=== PATIENT | female | born 1955 | race African-American/Black ===

== ENCOUNTER → 2019-03-21 | Outpatient (CLI) | payer MEDICARE, OTHER ==
[~2019-03-21] MED LIST: APIX2.5T PO; ASCO500 PO; ATOR40TA28 PO; BISA-151 PO; BUME1TAB34 PO; CARV12 PO; FOLI0.8T2 PO; INSLAN SQ; INSU100V39 SQ; NIFE90TA45 PO; POLY238P2 PO; SEVE800T17 PO
== END | disposition home or self-care (01) ==
LOC: RADPV 10:50
PROVIDERS: ATTEND Internal Medicine Geriatric Medicine
DX: I82.519 Chronic embolism and thrombosis of unspecified femoral vein (principal)
CPT/HCPCS: 93970

== ENCOUNTER → 2019-07-18 | Outpatient (CLI) | payer MEDICARE, OTHER | END | disposition home or self-care (01) | LOC: RADPV 13:43 | PROVIDERS: ATTEND Internal Medicine Geriatric Medicine | DX: I82.4Y1 Acute embolism and thrombosis of unspecified deep veins of right proximal lower extremity (principal) | CPT/HCPCS: 93970 ==

== ENCOUNTER → 2019-12-28 | Outpatient (CLI) | payer MEDICARE, OTHER ==
[2019-12-28 10:12] LABS: BASOPHILS % (AUTO) 0.9 % (0.0-2.0); EOSINOPHILS % (AUTO) 2.9 % (1.0-6.0); HEMATOCRIT 34.7 % (36-46); HEMOGLOBIN 11.6 g/dL (12.0-16.0); LYMPHOCYTES # (AUTO) 1.7 K/uL (1.0-4.8); LYMPHOCYTES % (AUTO) 33.7 % (22.0-44.0); MEAN CORPUSCULAR HEMOGLOBIN 31.9 pg (26.0-34.0); MEAN CORPUSCULAR HGB CONC 33.5 G/dL (31.0-37.0); MEAN CORPUSCULAR VOLUME 95 fL (80-100); MONOCYTES # (AUTO) 0.5 K/uL (0.1-1.0); MONOCYTES % (AUTO) 10.2 % (2.0-9.0); NEUTROPHILS # (AUTO) 2.7 K/uL (1.8-7.7); NEUTROPHILS % (AUTO) 52.3 % (40.0-70.0); PLATELET COUNT (AUTO) 282 K/uL (150-450); RED BLOOD CELL COUNT(AUTO) 3.65 MIL/uL (4.00-5.20); RED CELL DISTRIBUTION WIDTH 13.4 % (11.5-14.5)
[2019-12-28 10:24] LABS: HEMOGLOBIN A1C 6.4 % (3.8-5.6)
[2019-12-28 10:41] LABS: BILIRUBIN,TOTAL 0.4 mg/dL (0.1-1.0); CALCIUM, TOTAL 9.1 mg/dL (8.8-10.5); CHOL/HDL RATIO 5.2 (3.9-5.7); CREATININE 12.47 mg/dL (0.60-1.30); FREE T4 (FREE THYROXINE) 0.89 ng/dL (0.76-1.46); POTASSIUM 3.9 mmol/L (3.5-5.1); THYROID STIMULATING HORMONE 4.69 uIU/mL (0.36-3.74)
[2019-12-28 10:42] LABS: VITAMIN D,TOTAL (25-0H) 35 ng/mL (30-100)
[2019-12-28 10:56] LABS: FOLATE SERUM > 24.0 ng/mL (5.4-); VITAMIN B12 LEVEL > 2000 pg/mL (211-911)
== END | disposition home or self-care (01) ==
LOC: LABPV 09:25
PROVIDERS: ATTEND Internal Medicine Geriatric Medicine
DX: I12.9 Hypertensive chronic kidney disease with stage 1 through stage 4 chronic kidney disease, or unspecified chronic kidney disease (principal); E11.22 Type 2 diabetes mellitus with diabetic chronic kidney disease; N18.9 Chronic kidney disease, unspecified; E11.65 Type 2 diabetes mellitus with hyperglycemia; E11.69 Type 2 diabetes mellitus with other specified complication; E11.40 Type 2 diabetes mellitus with diabetic neuropathy, unspecified; E78.5 Hyperlipidemia, unspecified; G64 Other disorders of peripheral nervous system; Z79.899 Other long term (current) drug therapy
CPT/HCPCS: 82306; 82607; 82746; 83036; 84439; 84443

== ENCOUNTER → 2020-07-17 | Outpatient (CLI) | payer MEDICARE, OTHER ==
[2020-07-17 10:10] LABS: BASOPHILS % (AUTO) 2.6 % (0.0-2.0); EOSINOPHILS % (AUTO) 11.6 % (1.0-6.0); HEMATOCRIT 32.6 % (36-46); HEMOGLOBIN 10.7 g/dL (12.0-16.0); LYMPHOCYTES # (AUTO) 1.3 K/uL (1.0-4.8); LYMPHOCYTES % (AUTO) 33.1 % (22.0-44.0); MEAN CORPUSCULAR HEMOGLOBIN 31.2 pg (26.0-34.0); MEAN CORPUSCULAR HGB CONC 32.8 G/dL (31.0-37.0); MEAN CORPUSCULAR VOLUME 95 fL (80-100); MONOCYTES # (AUTO) 0.3 K/uL (0.1-1.0); MONOCYTES % (AUTO) 8.3 % (2.0-9.0); NEUTROPHILS # (AUTO) 1.7 K/uL (1.8-7.7); NEUTROPHILS % (AUTO) 44.4 % (40.0-70.0); PLATELET COUNT (AUTO) 203 K/uL (150-450); RED BLOOD CELL COUNT(AUTO) 3.43 MIL/uL (4.00-5.20); RED CELL DISTRIBUTION WIDTH 15.3 % (11.5-14.5)
[2020-07-17 10:48] LABS: ALBUMIN 3.5 g/dL (3.4-5.0); BILIRUBIN,TOTAL 0.4 mg/dL (0.1-1.0); CALCIUM, TOTAL 8.7 mg/dL (8.8-10.5); CHOL/HDL RATIO 3.1 (3.9-5.7); CREATININE 4.84 mg/dL (0.60-1.30); POTASSIUM 4.8 mmol/L (3.5-5.1); TOTAL PROTEIN, SERUM 7.8 g/dL (6.4-8.2)
[2020-07-17 11:01] LABS: HEMOGLOBIN A1C 5.5 % (3.8-5.6)
[2020-07-17 13:43] LABS: THYROID STIMULATING HORMONE 2.36 uIU/mL (0.36-3.74)
[2020-07-18 13:12] LABS: VITAMIN D,TOTAL (25-0H) 63 ng/mL (30-100)
[2020-07-18 13:14] LABS: FOLATE SERUM > 24.0 ng/mL (5.4-)
[2020-07-18 13:52] LABS: VITAMIN B12 LEVEL 1316 pg/mL (211-911)
== END | disposition home or self-care (01) ==
LOC: LABPV 09:34
PROVIDERS: ATTEND Internal Medicine Geriatric Medicine
DX: E11.65 Type 2 diabetes mellitus with hyperglycemia (principal); E11.40 Type 2 diabetes mellitus with diabetic neuropathy, unspecified; E11.22 Type 2 diabetes mellitus with diabetic chronic kidney disease; I12.9 Hypertensive chronic kidney disease with stage 1 through stage 4 chronic kidney disease, or unspecified chronic kidney disease; E11.49 Type 2 diabetes mellitus with other diabetic neurological complication; G64 Other disorders of peripheral nervous system; E78.5 Hyperlipidemia, unspecified; E87.1 Hypo-osmolality and hyponatremia; Z79.899 Other long term (current) drug therapy
CPT/HCPCS: 82306; 82607; 82746; 83036; 84439; 84443

== ENCOUNTER → 2021-01-21 | Outpatient (CLI) | payer MEDICARE, OTHER ==
[~2021-01-21] MED LIST changes: -BISA-151 PO; -CARV12 PO; +CARV6 PO; +NIFE-39 PO; -NIFE90TA45 PO; +PANT-31 PO; -POLY238P2 PO; +PREG75 PO
== END | disposition home or self-care (01) ==
LOC: RADPV 11:01
PROVIDERS: ATTEND Podiatrist Foot & Ankle Surgery
DX: M77.32 Calcaneal spur, left foot (principal); M85.872 Other specified disorders of bone density and structure, left ankle and foot; M79.89 Other specified soft tissue disorders; I70.292 Other atherosclerosis of native arteries of extremities, left leg; E11.29 Type 2 diabetes mellitus with other diabetic kidney complication

== ENCOUNTER 2021-01-28 07:49 | Inpatient (IN) | payer MEDICARE, OTHER ==
[~2021-01-28] VITALS: Ht 162.6 cm; Wt 52.0 kg
[2021-01-28 08:05] LABS: GLUCOMETER DEV NAME(LOC) ERT.5; GLUCOSE,POINT OF CARE 94 MG/DL (70-110)
[2021-01-28] MEDS ORDERED: CefTRIAXone 1 GM/DEXTROSE 50 ML IV ONE (10:00)
[2021-01-28] MEDS ORDERED: VANCOMYCIN HCL 1.5 GM in DEXTROSE 5%-WATER 250 ML IV ONE (10:00)
[2021-01-28 10:34] LABS: BASOPHILS % (AUTO) 1.9 % (0.0-2.0); EOSINOPHILS % (AUTO) 4.9 % (1.0-6.0); HEMOGLOBIN 11.3 g/dL (12.0-16.0); LYMPHOCYTES # (AUTO) 1.2 K/uL (1.0-4.8); LYMPHOCYTES % (AUTO) 28.5 % (22.0-44.0); MEAN CORPUSCULAR HEMOGLOBIN 30.2 pg (26.0-34.0); MEAN CORPUSCULAR HGB CONC 32.1 G/dL (31.0-37.0); MEAN CORPUSCULAR VOLUME 94 fL (80-100); MONOCYTES # (AUTO) 0.3 K/uL (0.1-1.0); MONOCYTES % (AUTO) 7.8 % (2.0-9.0); NEUTROPHILS # (AUTO) 2.3 K/uL (1.8-7.7); NEUTROPHILS % (AUTO) 56.9 % (40.0-70.0); PLATELET COUNT (AUTO) 242 K/uL (150-450); RED BLOOD CELL COUNT(AUTO) 3.73 MIL/uL (4.00-5.20); RED CELL DISTRIBUTION WIDTH 16.5 % (11.5-14.5)
[2021-01-28 10:36] LABS: ALBUMIN 3.6 g/dL (3.4-5.0); BILIRUBIN,TOTAL 0.3 mg/dL (0.1-1.0); CALCIUM, TOTAL 9.1 mg/dL (8.8-10.5); CREATININE 5.96 mg/dL (0.60-1.30); LACTIC ACID 0.5 mmol/L (0.4-2.0); POTASSIUM 5.4 mmol/L (3.5-5.1); TOTAL PROTEIN, SERUM 7.6 g/dL (6.4-8.2)
[2021-01-28 11:11] LABS: GLUCOSE,POINT OF CARE 112 MG/DL (70-110)
[2021-01-28] MEDS ORDERED: HYDR20I IVP (12:23)
[2021-01-28] MEDS: HydrALAZINE HCL 20 MG/ML VIAL IVP PRN ×2 (12:43→20:06)
[2021-01-28 13:10] VITALS: BP 181/80
[2021-01-28] MEDS ORDERED: CLOP75TA60 PO (13:47)
[2021-01-28] MEDS ORDERED: ASPI-1450 PO (13:47)
[2021-01-28] MEDS ORDERED: HYDR50TA36 PO (13:47)
[2021-01-28] MEDS ORDERED: VITA1CAP17 PO (13:47)
[2021-01-28] MEDS ORDERED: CARVEDILOL 3.125 MG TABLET PO SCH (14:00)
[2021-01-28] MEDS ORDERED: CARVEDILOL 6.25 MG TABLET PO SCH (14:00)
[2021-01-28] MEDS: NIFEdipine 60 MG ER TABLET PO SCH (15:20)
[2021-01-28] MEDS ORDERED: SODIUM POLYSTYRENE SULFONATE 15 GM/60 ML SUSPENSION BOTTLE PO ONE (15:30)
[2021-01-28] MEDS ORDERED: BISACODYL 10 MG RECTAL RECTAL SUPPOSITORY PR PRN ×2 (15:30→16:45)
[2021-01-28] MEDS: HydrALAZINE HCL 50 MG TABLET PO SCH ×2 (16:34→21:00)
[2021-01-28 16:41] VITALS: BP 170/59
[2021-01-28] MEDS ORDERED: MORPHINE SULFATE 2 MG/ML SYRINGE IVP PRN (16:45)
[2021-01-28] MEDS ORDERED: MAGNESIUM HYDROXIDE SUSPENSION 30 ML UDCUP PO PRN (16:45)
[2021-01-28] MEDS ORDERED: ZOLPIDEM TARTRATE 5 MG TABLET PO PRN (16:45)
[2021-01-28] MEDS ORDERED: ONDANSETRON HCL 4 MG/2 ML VIAL IVP PRN (16:45)
[2021-01-28] MEDS ORDERED: HYDROCODONE/ACETAMINOPHEN 5-325 MG TABLET PO PRN (16:45)
[2021-01-28] MEDS ORDERED: VANCOMYCIN HCL 1 GM/D5% WATER 200 ML IV PRN (17:00)
[2021-01-28] MEDS ORDERED: DEXTROSE 50%-WATER 25 GM/50 ML SYRINGE IVP PRN (17:15)
[2021-01-28 17:23] LABS: THYROID STIMULATING HORMONE 3.59 uIU/mL (0.36-3.74)
[2021-01-28] MEDS: SEVELAMER CARBONATE 800 MG TABLET PO SCH (18:44)
[2021-01-28] MEDS: ASPIRIN 81 MG CHEWABLE TABLET PO SCH (21:00)
[2021-01-28] MEDS: DOCUSATE SODIUM 100 MG CAPSULE PO SCH (21:00)
[2021-01-28] MEDS: CARVEDILOL 12.5 MG TABLET PO SCH (21:00)
[2021-01-28 23:11] VITALS: BP 146/64
[2021-01-28] MEDS: HEPARIN SODIUM,PORCINE 5,000 UNITS/ML VIAL SQ SCH (23:32)
[2021-01-29 00:22] VITALS: BP 155/54
[2021-01-29 01:31] LABS: GLUCOMETER DEV NAME(LOC) 5N.3; GLUCOSE,POINT OF CARE 119 MG/DL (70-110)
[2021-01-29 01:31] LABS: GLUCOMETER DEV NAME(LOC) 5S.2B; GLUCOSE,POINT OF CARE 124 MG/DL (70-110)
[2021-01-29 01:31] LABS: GLUCOMETER DEV NAME(LOC) 5S.2B; GLUCOSE,POINT OF CARE 149 MG/DL (70-110)
[2021-01-29 05:30] VITALS: BP 161/78
[2021-01-29] MEDS ORDERED: SODIUM CHLORIDE 0.9% 1,000 ML IV ONE (06:00)
[2021-01-29] MEDS ORDERED: SODIUM CHLORIDE 0.9% 10 ML ONE (06:28)
[2021-01-29] MEDS ORDERED: SODIUM CL IRRIG SOLN BAG 0 ML IRRIG ONE (06:28)
[2021-01-29] MEDS ORDERED: BUPIVACAINE HCL/PF 0.25% 30 ML VIAL ONE (06:28)
[2021-01-29] MEDS ORDERED: LIDOCAINE/PF 1% 30 ML VIAL ONE (06:28)
[2021-01-29] MEDS ORDERED: BACITRACIN 50,000 UNITS/VIAL ONE (06:28)
[2021-01-29] MEDS ORDERED: SODIUM CHLORIDE 0.9% 0 ML ONE (06:28)
[2021-01-29] MEDS ORDERED: VANCOMYCIN HCL 1 GM/VIAL ONE (06:29)
[2021-01-29 06:48] LABS: GLUCOMETER DEV NAME(LOC) SDS.; GLUCOSE,POINT OF CARE 94 MG/DL (70-110)
[2021-01-29] MEDS ORDERED: GELATIN SPONGE,ABSORBABLE 50 MM TP ONE (07:07)
[2021-01-29] MEDS ORDERED: THROMBIN, BOVINE 20000 UNITS/VIAL POWDER TP ONE (07:08)
[2021-01-29] MEDS ORDERED: HYDROmorphone 2 MG/ML VIAL IVP PRN (07:30)
[2021-01-29] MEDS ORDERED: FentaNYL CITRATE PF 100 MCG/2 ML VIAL IVP PRN (07:30)
[2021-01-29] MEDS ORDERED: MEPERIDINE-PF 25 MG/ML VIAL IVP PRN (07:30)
[2021-01-29] MEDS ORDERED: OXYGEN THERAPY IH SCH (08:00)
[2021-01-29] MEDS: SEVELAMER CARBONATE 800 MG TABLET PO SCH ×3 (08:00→17:46)
[2021-01-29] MEDS: HEPARIN SODIUM,PORCINE 5,000 UNITS/ML VIAL SQ SCH ×3 (08:00→23:38)
[2021-01-29] MEDS: HydrALAZINE HCL 50 MG TABLET PO SCH ×3 (09:00→21:07)
[2021-01-29] MEDS: DOCUSATE SODIUM 100 MG CAPSULE PO SCH ×2 (09:00→21:08)
[2021-01-29] MEDS: CLOPIDOGREL BISULFATE 75 MG TABLET PO SCH (09:18)
[2021-01-29] MEDS: PANTOPRAZOLE SODIUM 40 MG DR TABLET PO SCH (09:18)
[2021-01-29] MEDS: NIFEdipine 60 MG ER TABLET PO SCH (09:18)
[2021-01-29] MEDS: VITAMIN B COMP/VIT C/FOLIC ACID CAPSULE PO SCH (09:18)
[2021-01-29] MEDS: CARVEDILOL 12.5 MG TABLET PO SCH ×2 (09:19→21:07)
[2021-01-29 09:40] VITALS: BP 165/60
[2021-01-29 10:49] LABS: INR 1.2 (0.9-1.1); PROTHROMBIN TIME 12.4 SEC (9.4-11.6)
[2021-01-29 11:11] LABS: ALANINE AMINOTRANSFERASE 21 U/L (12-78); ALBUMIN 3.7 g/dL (3.4-5.0); ALKALINE PHOSPHATASE 78 U/L (46-116); ANION GAP 12 mmol/L (8-16); ASPARTATE AMINOTRANSFERASE 20 U/L (15-37); BILIRUBIN,TOTAL 0.3 mg/dL (0.1-1.0); CALCIUM, TOTAL 9.5 mg/dL (8.8-10.5); CARBON DIOXIDE 25 mmol/L (22-29); CHLORIDE 96 mmol/L (98-107); CHOL/HDL RATIO 2.3 (3.9-5.7); CHOLESTEROL 195 mg/dL (131-200); CREATININE 4.32 mg/dL (0.60-1.30); FREE T4 (FREE THYROXINE) 1.01 ng/dL (0.76-1.46); GLOMERULAR FILTR. RATE CALC 12 mL/min (>60); GLUCOSE,RANDOM 133 mg/dL (70-110); HDL CHOLESTEROL 84 mg/dL (40-60); LDL CHOL (CALC.) 86 mg/dL (0-130); POTASSIUM 4.9 mmol/L (3.5-5.1); SODIUM SERUM 133 mmol/L (136-145); THYROID STIMULATING HORMONE 3.34 uIU/mL (0.36-3.74); TRIGLYCERIDES 124 mg/dL (15-150); UREA NITROGEN, BLOOD 38 mg/dL (7-18)
[2021-01-29 11:26] LABS: C-REACTIVE PROTEIN QUANT < 0.05 mg/dL (0.00-0.30)
[2021-01-29 11:28] LABS: BASOPHILS % (AUTO) 1.4 % (0.0-2.0); HEMOGLOBIN 12.3 g/dL (12.0-16.0); LYMPHOCYTES # (AUTO) 0.5 K/uL (1.0-4.8); LYMPHOCYTES % (AUTO) 16.3 % (22.0-44.0); MEAN CORPUSCULAR HEMOGLOBIN 30.6 pg (26.0-34.0); MEAN CORPUSCULAR HGB CONC 32.4 G/dL (31.0-37.0); MEAN CORPUSCULAR VOLUME 94 fL (80-100); MONOCYTES # (AUTO) 0.1 K/uL (0.1-1.0); MONOCYTES % (AUTO) 1.9 % (2.0-9.0); NEUTROPHILS # (AUTO) 2.3 K/uL (1.8-7.7); NEUTROPHILS % (AUTO) 79.4 % (40.0-70.0); PLATELET COUNT (AUTO) 257 K/uL (150-450); RED BLOOD CELL COUNT(AUTO) 4.03 MIL/uL (4.00-5.20); RED CELL DISTRIBUTION WIDTH 16.5 % (11.5-14.5)
[2021-01-29 11:35] LABS: URIC ACID 2.8 mg/dL (2.6-7.2)
[2021-01-29 11:38] VITALS: BP 158/62
[2021-01-29 11:42] LABS: GLUCOMETER DEV NAME(LOC) 5S.2B; GLUCOSE,POINT OF CARE 102 MG/DL (70-110)
[2021-01-29] MEDS: ATORVASTATIN CALCIUM 40 MG TABLET PO SCH (11:56)
[2021-01-29] MEDS: INSULIN LISPRO 100 UNITS/ML SQ PRN (11:59)
[2021-01-29 13:50] LABS: ERYTHROCYTE SEDIMENTATION RATE 26 MM/HR (0-20)
[2021-01-29 16:40] VITALS: BP 164/68
[2021-01-29 20:42] VITALS: BP 162/54
[2021-01-29] MEDS: ASPIRIN 81 MG CHEWABLE TABLET PO SCH (21:07)
[2021-01-29] MEDS: ACETAMINOPHEN 325 MG TABLET PO PRN (22:01)
[2021-01-29 23:04] LABS: GLUCOMETER DEV NAME(LOC) 5N.3; GLUCOSE,POINT OF CARE 134 MG/DL (70-110)
[2021-01-29 23:04] LABS: GLUCOMETER DEV NAME(LOC) 5N.3; GLUCOSE,POINT OF CARE 118 MG/DL (70-110)
[2021-01-30 00:17] VITALS: BP 178/58
[2021-01-30 04:58] VITALS: BP 187/58
[2021-01-30] MEDS: HydrALAZINE HCL 20 MG/ML VIAL IVP PRN ×3 (05:01→20:14)
[2021-01-30] MEDS ORDERED: PROPOFOL 1% 20 ML VIAL IVP ONE (05:40)
[2021-01-30] MEDS ORDERED: ONDANSETRON HCL 4 MG/2 ML VIAL IVP ONE (05:40)
[2021-01-30] MEDS ORDERED: FentaNYL CITRATE PF 100 MCG/2 ML VIAL IVP ONE (05:40)
[2021-01-30] MEDS ORDERED: DEXAMETHASONE SOD PHOS 4 MG/ML VIAL IVP ONE (05:40)
[2021-01-30 07:26] VITALS: BP 186/59
[2021-01-30] MEDS: CARVEDILOL 12.5 MG TABLET PO SCH ×2 (07:46→20:14)
[2021-01-30] MEDS: HydrALAZINE HCL 50 MG TABLET PO SCH ×3 (07:46→23:47)
[2021-01-30] MEDS: SEVELAMER CARBONATE 800 MG TABLET PO SCH ×3 (08:04→18:00)
[2021-01-30] MEDS: DOCUSATE SODIUM 100 MG CAPSULE PO SCH ×2 (08:16→20:13)
[2021-01-30] MEDS: CLOPIDOGREL BISULFATE 75 MG TABLET PO SCH (08:16)
[2021-01-30] MEDS: ATORVASTATIN CALCIUM 40 MG TABLET PO SCH (08:16)
[2021-01-30] MEDS: VITAMIN B COMP/VIT C/FOLIC ACID CAPSULE PO SCH (08:16)
[2021-01-30] MEDS: PANTOPRAZOLE SODIUM 40 MG DR TABLET PO SCH (08:16)
[2021-01-30] MEDS: EPOETIN ALFA 10,000 UNITS/ML 2 ML VIAL SQ SCH (08:18)
[2021-01-30] MEDS: HEPARIN SODIUM,PORCINE 5,000 UNITS/ML VIAL SQ SCH (08:19)
[2021-01-30] MEDS: NIFEdipine 60 MG ER TABLET PO SCH (09:38)
[2021-01-30] MEDS ORDERED: CloNIDine HCL 0.1 MG TABLET PO PRN (10:30)
[2021-01-30 11:51] LABS: GLUCOMETER DEV NAME(LOC) 5N.1C; GLUCOSE,POINT OF CARE 247 MG/DL (70-110)
[2021-01-30 11:51] LABS: GLUCOMETER DEV NAME(LOC) 5N.1C; GLUCOSE,POINT OF CARE 149 MG/DL (70-110)
[2021-01-30 11:51] LABS: GLUCOMETER DEV NAME(LOC) 5N.1C; GLUCOSE,POINT OF CARE 139 MG/DL (70-110)
[2021-01-30 12:00] VITALS: BP 174/61
[2021-01-30] MEDS ORDERED: VANCOMYCIN HCL 1 GM/D5% WATER 200 ML IV ONE (12:00)
[2021-01-30] MEDS: ACETAMINOPHEN 325 MG TABLET PO PRN (12:02)
[2021-01-30] MEDS ORDERED: SODIUM CHLORIDE 0.9% 500 ML IV ONE (13:52)
[2021-01-30] MEDS ORDERED: CARV3 PO (13:56)
[2021-01-30] MEDS: SIMETHICONE 80 MG CHEWABLE TABLET CHEW PRN (14:20)
[2021-01-30 15:38] VITALS: BP 163/50
[2021-01-30 17:49] LABS: GLUCOMETER DEV NAME(LOC) 5N.1C; GLUCOSE,POINT OF CARE 149 MG/DL (70-110)
[2021-01-30] MEDS: INSULIN LISPRO 100 UNITS/ML SQ PRN (19:45)
[2021-01-30] MEDS: ASPIRIN 81 MG CHEWABLE TABLET PO SCH (20:13)
[2021-01-30 20:32] VITALS: BP 169/58
[2021-01-31] VITALS (7 sets, daily range): BP systolic 161–180; BP diastolic 52–74
[2021-01-31 02:16] LABS: GLUCOMETER DEV NAME(LOC) 5S.1; GLUCOSE,POINT OF CARE 121 MG/DL (70-110)
[2021-01-31] MEDS: INSULIN LISPRO 100 UNITS/ML SQ PRN ×2 (05:33→12:30)
[2021-01-31] MEDS: HydrALAZINE HCL 20 MG/ML VIAL IVP PRN (06:09)
[2021-01-31 07:16] LABS: GLUCOMETER DEV NAME(LOC) 5S.1; GLUCOSE,POINT OF CARE 127 MG/DL (70-110)
[2021-01-31 07:44] LABS: BASOPHILS % (AUTO) 0.9 % (0.0-2.0); EOSINOPHILS % (AUTO) 3.7 % (1.0-6.0); HEMATOCRIT 33.1 % (36-46); HEMOGLOBIN 10.8 g/dL (12.0-16.0); LYMPHOCYTES # (AUTO) 0.9 K/uL (1.0-4.8); LYMPHOCYTES % (AUTO) 21.7 % (22.0-44.0); MEAN CORPUSCULAR HEMOGLOBIN 30.8 pg (26.0-34.0); MEAN CORPUSCULAR HGB CONC 32.6 G/dL (31.0-37.0); MEAN CORPUSCULAR VOLUME 95 fL (80-100); MONOCYTES # (AUTO) 0.5 K/uL (0.1-1.0); MONOCYTES % (AUTO) 12.8 % (2.0-9.0); NEUTROPHILS # (AUTO) 2.6 K/uL (1.8-7.7); NEUTROPHILS % (AUTO) 60.9 % (40.0-70.0); PLATELET COUNT (AUTO) 225 K/uL (150-450); RED BLOOD CELL COUNT(AUTO) 3.51 MIL/uL (4.00-5.20); RED CELL DISTRIBUTION WIDTH 16.6 % (11.5-14.5)
[2021-01-31 07:55] LABS: CALCIUM, TOTAL 8.9 mg/dL (8.8-10.5); CREATININE 4.3 mg/dL (0.60-1.30); POTASSIUM 4.3 mmol/L (3.5-5.1)
[2021-01-31 08:13] LABS: MAGNESIUM 2.2 mg/dL (1.80-2.40); PHOSPHORUS 4.3 mg/dL (2.5-4.9)
[2021-01-31] MEDS: PANTOPRAZOLE SODIUM 40 MG DR TABLET PO SCH (08:39)
[2021-01-31] MEDS: HydrALAZINE HCL 50 MG TABLET PO SCH ×3 (08:39→21:26)
[2021-01-31] MEDS: CLOPIDOGREL BISULFATE 75 MG TABLET PO SCH (08:39)
[2021-01-31] MEDS: VITAMIN B COMP/VIT C/FOLIC ACID CAPSULE PO SCH (08:39)
[2021-01-31] MEDS: DOCUSATE SODIUM 100 MG CAPSULE PO SCH ×2 (08:39→20:35)
[2021-01-31] MEDS: ATORVASTATIN CALCIUM 40 MG TABLET PO SCH (08:39)
[2021-01-31] MEDS: NIFEdipine 60 MG ER TABLET PO SCH ×2 (08:39→20:36)
[2021-01-31] MEDS: SEVELAMER CARBONATE 800 MG TABLET PO SCH ×3 (08:39→18:11)
[2021-01-31] MEDS: CARVEDILOL 12.5 MG TABLET PO SCH ×2 (08:49→20:35)
[2021-01-31] MEDS ORDERED: CeFAZolin 2 GM/DEXTROSE 50 ML IV ONE (14:00)
[2021-01-31] MEDS: ASPIRIN 81 MG CHEWABLE TABLET PO SCH (20:35)
[2021-02-01] VITALS (7 sets, daily range): BP systolic 65–171; BP diastolic 56–76
[2021-02-01 02:02] LABS: GLUCOMETER DEV NAME(LOC) 5S.1; GLUCOSE,POINT OF CARE 228 MG/DL (70-110)
[2021-02-01 02:02] LABS: GLUCOMETER DEV NAME(LOC) 5S.1; GLUCOSE,POINT OF CARE 92 MG/DL (70-110)
[2021-02-01 02:03] LABS: GLUCOMETER DEV NAME(LOC) 5N.1C; GLUCOSE,POINT OF CARE 125 MG/DL (70-110)
[2021-02-01 07:13] LABS: GLUCOMETER DEV NAME(LOC) 5S.1; GLUCOSE,POINT OF CARE 129 MG/DL (70-110)
[2021-02-01 08:11] LABS: CALCIUM, TOTAL 9.3 mg/dL (8.8-10.5); CREATININE 6.19 mg/dL (0.60-1.30); POTASSIUM 4.9 mmol/L (3.5-5.1)
[2021-02-01] MEDS: SEVELAMER CARBONATE 800 MG TABLET PO SCH ×2 (08:26→12:04)
[2021-02-01] MEDS: CLOPIDOGREL BISULFATE 75 MG TABLET PO SCH (08:27)
[2021-02-01] MEDS: HydrALAZINE HCL 50 MG TABLET PO SCH ×3 (08:27→19:57)
[2021-02-01] MEDS: PANTOPRAZOLE SODIUM 40 MG DR TABLET PO SCH (08:27)
[2021-02-01] MEDS: ATORVASTATIN CALCIUM 40 MG TABLET PO SCH (08:27)
[2021-02-01] MEDS: NIFEdipine 60 MG ER TABLET PO SCH ×2 (08:27→19:57)
[2021-02-01] MEDS: DOCUSATE SODIUM 100 MG CAPSULE PO SCH ×2 (08:27→19:57)
[2021-02-01] MEDS: CARVEDILOL 12.5 MG TABLET PO SCH ×2 (08:27→19:57)
[2021-02-01] MEDS: VITAMIN B COMP/VIT C/FOLIC ACID CAPSULE PO SCH (08:27)
[2021-02-01] MEDS: INSULIN LISPRO 100 UNITS/ML SQ PRN ×2 (12:06→17:50)
[2021-02-01 12:48] LABS: BASOPHILS % (AUTO) 0.8 % (0.0-2.0); EOSINOPHILS % (AUTO) 4.3 % (1.0-6.0); HEMOGLOBIN 11.2 g/dL (12.0-16.0); LYMPHOCYTES # (AUTO) 1.1 K/uL (1.0-4.8); LYMPHOCYTES % (AUTO) 19.3 % (22.0-44.0); MEAN CORPUSCULAR HEMOGLOBIN 30.5 pg (26.0-34.0); MEAN CORPUSCULAR VOLUME 95 fL (80-100); MONOCYTES # (AUTO) 0.5 K/uL (0.1-1.0); MONOCYTES % (AUTO) 9.6 % (2.0-9.0); NEUTROPHILS # (AUTO) 3.8 K/uL (1.8-7.7); PLATELET COUNT (AUTO) 246 K/uL (150-450); RED BLOOD CELL COUNT(AUTO) 3.68 MIL/uL (4.00-5.20); RED CELL DISTRIBUTION WIDTH 17.2 % (11.5-14.5)
[2021-02-01] MEDS: HydrALAZINE HCL 20 MG/ML VIAL IVP PRN (13:25)
[2021-02-01] MEDS: SEVELAMER CARBONATE 800 MG POWDER PACKET PO SCH ×2 (17:34→19:58)
[2021-02-01] MEDS: SIMETHICONE 80 MG CHEWABLE TABLET CHEW PRN (19:05)
[2021-02-01] MEDS: ASPIRIN 81 MG CHEWABLE TABLET PO SCH (19:57)
[2021-02-02 00:37] LABS: GLUCOMETER DEV NAME(LOC) 5S.1; GLUCOSE,POINT OF CARE 191 MG/DL (70-110)
[2021-02-02 00:37] LABS: GLUCOMETER DEV NAME(LOC) 5N.1C; GLUCOSE,POINT OF CARE 168 MG/DL (70-110)
[2021-02-02 00:38] LABS: GLUCOMETER DEV NAME(LOC) 5S.1; GLUCOSE,POINT OF CARE 155 MG/DL (70-110)
[2021-02-02 04:28] VITALS: BP 182/71
[2021-02-02 06:30] LABS: EOSINOPHILS % (AUTO) 6.7 % (1.0-6.0); HEMATOCRIT 31.6 % (36-46); HEMOGLOBIN 10.4 g/dL (12.0-16.0); LYMPHOCYTES % (AUTO) 19.6 % (22.0-44.0); MEAN CORPUSCULAR HEMOGLOBIN 30.8 pg (26.0-34.0); MEAN CORPUSCULAR VOLUME 93 fL (80-100); MONOCYTES # (AUTO) 0.5 K/uL (0.1-1.0); NEUTROPHILS % (AUTO) 61.7 % (40.0-70.0); PLATELET COUNT (AUTO) 235 K/uL (150-450); RED BLOOD CELL COUNT(AUTO) 3.39 MIL/uL (4.00-5.20); RED CELL DISTRIBUTION WIDTH 16.9 % (11.5-14.5)
[2021-02-02 06:31] LABS: GLUCOMETER DEV NAME(LOC) 5S.1; GLUCOSE,POINT OF CARE 150 MG/DL (70-110)
[2021-02-02 08:09] VITALS: BP 163/61
[2021-02-02] MEDS: EPOETIN ALFA 10,000 UNITS/ML 2 ML VIAL SQ SCH (08:13)
[2021-02-02] MEDS: SEVELAMER CARBONATE 800 MG POWDER PACKET PO SCH ×2 (08:14→17:33)
[2021-02-02] MEDS: ATORVASTATIN CALCIUM 40 MG TABLET PO SCH (08:14)
[2021-02-02] MEDS: VITAMIN B COMP/VIT C/FOLIC ACID CAPSULE PO SCH (08:14)
[2021-02-02] MEDS: CLOPIDOGREL BISULFATE 75 MG TABLET PO SCH (08:14)
[2021-02-02] MEDS: DOCUSATE SODIUM 100 MG CAPSULE PO SCH (08:14)
[2021-02-02] MEDS: PANTOPRAZOLE SODIUM 40 MG DR TABLET PO SCH (08:14)
[2021-02-02] MEDS ORDERED: SODIUM CHLORIDE 0.9% 1,000 ML ONE (09:30)
[2021-02-02] MEDS ORDERED: VANCOMYCIN HCL 500 MG in DEXTROSE 5%-WATER 100 ML IV ONE (10:30)
[2021-02-02 11:32] VITALS: BP 180/69
[2021-02-02] MEDS: NIFEdipine 60 MG ER TABLET PO SCH (11:58)
[2021-02-02] MEDS: ACETAMINOPHEN 325 MG TABLET PO PRN (12:06)
[2021-02-02] MEDS: CARVEDILOL 12.5 MG TABLET PO SCH (13:13)
[2021-02-02] MEDS: HydrALAZINE HCL 50 MG TABLET PO SCH ×2 (13:13→16:16)
[2021-02-02 13:20] LABS: GLUCOMETER DEV NAME(LOC) 5N.1C; GLUCOSE,POINT OF CARE 154 MG/DL (70-110)
[2021-02-02] MEDS ORDERED: CARV12 PO (14:32)
[2021-02-02] MEDS ORDERED: CeFAZolin 2 GM/DEXTROSE 50 ML IV SCH (16:00)
[2021-02-02 16:02] VITALS: BP 162/69
[2021-02-02] MEDS: INSULIN LISPRO 100 UNITS/ML SQ PRN (17:33)
[2021-02-04 12:08] LABS: GLUCOMETER DEV NAME(LOC) 5S.1; GLUCOSE,POINT OF CARE 160 MG/DL (70-110)
== END 2021-02-02 19:30 | disposition home or self-care (01) | DRG 629 ==
LOC: EMS 07:59 → 5S 12:00
PROVIDERS: ADMIT Internal Medicine; ATTEND Internal Medicine Geriatric Medicine
PROC: 0QBP0ZZ Excision of Left Metatarsal, Open Approach (ICD-10-PCS; principal; 2021-01-29 07:00)
DX: E11.69 Type 2 diabetes mellitus with other specified complication (principal); E11.52 Type 2 diabetes mellitus with diabetic peripheral angiopathy with gangrene; I12.0 Hypertensive chronic kidney disease with stage 5 chronic kidney disease or end stage renal disease; E87.1 Hypo-osmolality and hyponatremia; M86.8X7 Other osteomyelitis, ankle and foot; N18.6 End stage renal disease; E11.621 Type 2 diabetes mellitus with foot ulcer; E11.42 Type 2 diabetes mellitus with diabetic polyneuropathy; E11.22 Type 2 diabetes mellitus with diabetic chronic kidney disease; E78.5 Hyperlipidemia, unspecified; L97.529 Non-pressure chronic ulcer of other part of left foot with unspecified severity; E78.00 Pure hypercholesterolemia, unspecified; K30 Functional dyspepsia; B95.61 Methicillin susceptible Staphylococcus aureus infection as the cause of diseases classified elsewhere; D63.1 Anemia in chronic kidney disease; E87.5 Hyperkalemia; F32.9 Major depressive disorder, single episode, unspecified; K21.9 Gastro-esophageal reflux disease without esophagitis; Z89.511 Acquired absence of right leg below knee; Z99.2 Dependence on renal dialysis; Z88.0 Allergy status to penicillin; Z79.899 Other long term (current) drug therapy
CPT/HCPCS: 80048; 80053; 80061; 80202; 82962; 83036; 83605; 83735; 84100; 84439; 84443; 84550; 85025; 85610; 85651; 86140; 87040; 87070; 87077; 87081; 87186; 87340; 88305; 88311; 93005; 99285; G0378; J0360; J0690; J0885; J1100; J1644; J2405; J2704; J3010; J3370; J3490; J7030; J7040; J7060

== ENCOUNTER 2021-09-27 19:17 | Emergency (ER) | payer MEDICARE, OTHER ==
[~2021-09-27] VITALS: Ht 167.6 cm; Wt 53.2 kg
[~2021-09-27 19:17] MED LIST changes: -APIX2.5T PO; -ASCO500 PO; +ASPI-1450 PO; -BUME1TAB34 PO; +CARV12 PO; -CARV6 PO; +CLOP75TA60 PO; +HYDR50TA36 PO; -INSLAN SQ; -PREG75 PO
[2021-09-27 20:33] VITALS: BP 188/64
[2021-09-27] MEDS ORDERED: HYDROCODONE/ACETAMINOPHEN 5-325 MG TABLET PO ONE (20:45)
== END 2021-09-27 22:19 | disposition home or self-care (01) ==
LOC: EMS 19:18
DX: S90.122A Contusion of left lesser toe(s) without damage to nail, initial encounter (principal); G62.9 Polyneuropathy, unspecified; E11.22 Type 2 diabetes mellitus with diabetic chronic kidney disease; I12.0 Hypertensive chronic kidney disease with stage 5 chronic kidney disease or end stage renal disease; N18.6 End stage renal disease; E78.00 Pure hypercholesterolemia, unspecified; K21.9 Gastro-esophageal reflux disease without esophagitis; Z99.2 Dependence on renal dialysis; Z88.0 Allergy status to penicillin; Z79.899 Other long term (current) drug therapy; W22.8XXA Striking against or struck by other objects, initial encounter; Y93.89 Activity, other specified; Y92.89 Other specified places as the place of occurrence of the external cause; Y99.8 Other external cause status
CPT/HCPCS: 99283